=== PATIENT | female | born 1990 | race Caucasian/White ===

== ENCOUNTER → 2020-05-09 | Outpatient (CLI) | payer OTHER ==
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
== END | disposition home or self-care (01) ==
LOC: US 13:06
PROVIDERS: ATTEND Family Medicine
DX: M79.661 Pain in right lower leg (principal)
CPT/HCPCS: 93926; 93971

== ENCOUNTER 2021-02-22 19:16 | Emergency (ER) | payer OTHER ==
[~2021-02-22] VITALS: Ht 157.5 cm; Wt 77.3 kg
--- NOTE | 2021-02-22 19:57 | RAD ---
EXAM: Left knee, 4 views. HISTORY: Pain. COMPARISON: None. FINDINGS: 4 views of left knee are obtained. There is no fracture, dislocation or subluxation. There is no joint effusion. IMPRESSION: No acute osseous finding. Electronically signed by: Meghan Rojas MD (02/22/2021 7:54 PM) [facility]
--- NOTE | 2021-02-22 20:05 | PHYS DOC ---
Past History Past Medical History: No Pertinent History Adult General Chief Complaint Chief Complaint: KNEE INJURY [facility] HPI Patient is a 30-year-old female presenting for knee pain. Onset was 2 days ago without any known inciting event, concerning mechanism of injury or trauma. Nothing known makes better or worse. Pain is focal to medial portion of left patella without radiation. She has not taken anything for pain. Timing of symptoms has been inconsistent since onset but she was concerned prompting her to come in for ER evaluation Review of Systems Review of Systems Fourteen body systems of review of systems have been reviewed. See HPI for pertinent positives and negative responses, other [place] all other systems are negative, non-pertinent or non-contributory Physical Exam Physical Exam Constitutional: Well developed, well nourished, no acute distress, non-toxic appearance. HENT: Normocephalic, atraumatic, bilateral external ears normal, oropharynx mois t, no oral exudates, nose normal. Eyes: PERRLA, EOMI, conjunctiva normal, no discharge. Neck: Normal range of motion, no tenderness, supple, no stridor. Cardiovascular: Heart rate regular per monitor Lungs & Thorax: No respiratory distress or accessory muscle use, bilateral chest rise Abdomen: Abdomen soft, non-tender, bowel sounds present in all quadrants, no guarding or rebound, nonacute abdomen. Skin: Warm, dry, no erythema, no rash. Back: No tenderness, no CVA tenderness. Extremities: No cyanosis, no clubbing, ROM intact, no edema. There is focal tenderness to medial portion of left patella with all other knee exam such as anterior and posterior Alirio, valgus and varus knee stress etc. being negative. No medial or lateral joint line tenderness, fibular head intact. All other motion testing of left lower extremity intact. No patellar grind Neurologic: Alert and oriented X 3, grossly normal motor & sensory function, no focal deficits noted. Psychologic: Affect normal, judgement normal, mood normal. EKG EKG [] Radiology/Procedures Radiology/Procedures EXAM: Left knee, 4 views. HISTORY: Pain. COMPARISON: None. FINDINGS: 4 views of left knee are obtained. There is no fracture, dislocation or subluxation. There is no joint effusion. IMPRESSION: No acute osseous finding. Electronically signed by: Meghan Rojas MD (02/22/2021 7:54 PM) [facility] Heart Score C/O Chest Pain: N/A Risk Factors: Risk Factors: DM, Current or recent (<one month) smoker, HTN, HLP, family history of CAD, obesity. Risk Scores: Risk Factors: DM, Current or recent (<one month) smoker, HTN, HLP, family history of CAD, obesity. Course & Med Decision Making Course & Med Decision Making Vital signs stable, HPI and physical exam consistent with likely diagnosis of patellar bursitis versus less likely other nonself-limiting disease/pathology Discussed need for continued supportive care, knee exercises, NSAID use and close PCP follow-up for further evaluation and if needed, physical therapy referral Patient amenable to proposed plan of care. Discussed negative radiograph. Strict return precautions were discussed with good understanding by patient. All questions and concerns addressed prior to your departure Dragon Disclaimer Dragon Disclaimer This electronic medical record was generated, in whole or in part, using a voice recognition dictation system. Departure Departure: Impression: Primary Impression: Left knee pain Disposition: HOME / SELF CARE / HOMELESS Condition: STABLE Referrals: BRENDA THOMAS MD (PCP) Patient Instructions: Knee - Patella Problems, Knee Exercises, Generic, SportsMed Additional Instructions: It is likely that you have experienced a sprain/strain that is causing you pain. The best treatment for this injury is continued range of motion to prevent a frozen joint. A Rest, Ice, Compression, Elevation (RICE) strategy may also be helpful in the acute phase. Please utilize prescribed ibuprofen for pain, sure to take with food as discussed. It is important for you to contact primary care physician first thing in the morning to review ER visit and need for close outpatient follow-up. As discussed, you might benefit from outpatient physical therapy referral versus other diagnostic work-up/imaging as indicated. If any concerning signs or symptoms present prior to outpatient follow-up please don't hesitate to come back for repeat evaluation. It was a pleasure to take care of you and I wish you a speedy recovery Scripts Ibuprofen (Ibu) 600 Mg Tablet 1 TAB PO Q6-8HRS for PAIN for 6 Days, #24 TAB 0 Refills Prov: HERNAN CAMARILLO DO 02/22/21 HERNAN CAMARILLO DO February 22, 2021 20:05
[2021-02-22] MEDS ORDERED: IBUP-571 PO (20:30)
[2021-02-22 20:37] VITALS: BP 102/76
== END 2021-02-22 20:37 | disposition home or self-care (01) ==
LOC: ER 19:16
DX: M25.562 Pain in left knee (principal)
CPT/HCPCS: 73564; 99283-25